=== PATIENT | male | born 1990 | race Caucasian/White ===

== ENCOUNTER 2017-06-12 15:52 | Emergency (ER) | payer SELFPAY ==
[~2017-06-12] VITALS: Ht 167.6 cm; Wt 723.0 kg
[2017-06-12] MEDS ORDERED: IBUPROFEN 600MG TABLET PO ONE (17:15)
[2017-06-12 18:00] VITALS: BP 118/58
== END 2017-06-12 18:02 | disposition home or self-care (01) ==
LOC: ER 15:52
DX: H61.22 Impacted cerumen, left ear (principal)
CPT/HCPCS: 99283